=== PATIENT | female | born 1990 | race African-American/Black ===

== ENCOUNTER 2021-10-05 21:10 | Emergency (ER) | payer MEDICAID ==
[~2021-10-05] VITALS: Ht 175.3 cm; Wt 65.4 kg
[2021-10-06] MEDS ORDERED: IBUPROFEN 400MG TABLET PO ONE (02:15)
[2021-10-06 02:31] VITALS: BP 107/70
[2021-10-06] MEDS ORDERED: NAPR500T7 MT (05:42)
== END 2021-10-06 06:09 | disposition home or self-care (01) ==
LOC: ER 21:10
DX: M19.072 Primary osteoarthritis, left ankle and foot (principal); M19.071 Primary osteoarthritis, right ankle and foot
CPT/HCPCS: 73610; 99283

== ENCOUNTER 2022-11-02 13:37 | Emergency (ER) | payer MEDICAID ==
[~2022-11-02] VITALS: Ht 175.3 cm; Wt 59.0 kg
[~2022-11-02 13:37] MED LIST: NAPR500T7 MT
[2022-11-02 16:51] VITALS: BP 123/84
[2022-11-02] MEDS ORDERED: ACETAMINOPHEN 325MG TABLET PO STA (17:26)
[2022-11-02] MEDS ORDERED: IBUP-2029 MT (19:42)
== END 2022-11-02 20:00 | disposition home or self-care (01) ==
LOC: ER 13:37
DX: S00.83XA Contusion of other part of head, initial encounter (principal); M54.2 Cervicalgia; Y04.0XXA Assault by unarmed brawl or fight, initial encounter; Y93.89 Activity, other specified; Y92.89 Other specified places as the place of occurrence of the external cause; Y99.8 Other external cause status
CPT/HCPCS: 70486; 81025; 99284